=== PATIENT | male | born 1960 | race Caucasian/White ===

== ENCOUNTER → 2016-10-29 | Outpatient (CLI) | payer BC ==
[~2016-10-29] MED LIST: BYSTOLIC5 MG PO; CYMBALTA30 MG PO; HYZAAR PO; LOSARTAN-HCTZ1 EAC1 PO; NEUPRO1 EAC1 TD; PRAMIPEXOLE DI0.5 MG PO; SINEMET CR 50/21 TAB PO; ZYLOPRIM100 MG PO
--- NOTE | ~2016-10-29 | MR113 ---
[facility] A Service of [facility] RADIOLOGY TEXT RESULTS PATIENT: STANISLAW PRESTON [facility] 56 UN[facility] #: [id number] AGE: [address]: LAURA HARTLEY MD SEX: M ORDER DR: [id number] [facility] [address] [place], [place] [address] [id number] O MR#: [id number] Acc #: [id number] NAME: STANISLAW PRESTON. : 1960 SEX: M STUDY DATE/TIME: 10/29/2016 7:16 UNIT: [facility] ROOM: STUDY DESCRIPTION: MR Lumbar Wo Contrast Attending Physician: Laura Hartley M.D. Referring Physician: Laura Hartley M.D. Ordering Physician: Laura Hartley M.D. Primary Care Physician: Joni Galvan M.D. [facility]ENTER REPORT This report is preliminary unless electronic signature is present. EXAM Lumbar spine MRI without, 10/29/2016 HISTORY Severe low back pain 2 weeks. Bilateral leg pain down to feet, left greater than right. Patient indicated abnormal EMG, chronic pain for many years off and on but worsening in the past 2 weeks. No cancer history. No trauma history provided. COMMENT MRI of the lumbar spine performed without contrast using routine 1.5T imaging technique. There is a comparison study from 12/06/2014. Spine is numbered assuming there is a hypoplastic S1-2 intervertebral disc and using this numbering redemonstrated is grade 1 anterolisthesis L5 on S1 by about 4-5 mm. This is not changed from previous. There are again bilateral chronic-appearing L5 pars defects with hypertrophic changes around. them. Lumbar lordosis is exaggerated. 5-1 intervertebral disc is mildly desiccated with posterior intervertebral disc height loss. Also mild disc desiccation and loss of intervertebral disc height at 3-4, 4-5 and to a lesser extent 1-2, T12-L1, T11-12. Conus medullaris terminates at L1 level and is unremarkable. Bone marrow signal intensity unremarkable. On sagittal imaging at T12-L1, T11-12, there is concentric disc bulge but no apparent canal or foraminal impingement. At L1-2, mild right and moderate left-side facet degenerative change with ligamentum flavum thickening. Minor concentric disc bulge. No canal stenosis or significant foraminal impingement. At L2-3, qfmw-np-xfkzedwf bilateral facet degenerative change with mild ligamentum flavum thickening with no canal or foraminal impingement. [facility]. [facility] A Service of [facility] RADIOLOGY TEXT RESULTS PATIENT: STANISLAW PRESTON LOCATION: [facility] : 56 UNIT #: [id number] AGE: [address]: LAURA HARTLEY MD SEX: M ORDER DR: At 3-4, mild facet degenerative change bilaterally. Small extracanalicular synovial cyst on the left. Mild concentric disc bulge more prominent posteriorly and towards the right side posterolaterally. Mild effacement of the anterior thecal sac, minor mass effect on the right lateral recess. No significant canal stenosis. Only mild inferior foraminal narrowing. At L4-5, there is moderate facet arthritis bilaterally with sukc-xm-wqpndcti ligamentum flavum thickening. There is a mild broad-based posterior disc bulge which extends into the inferior foramina. There is no canal stenosis. There is mild mass effect on the left lateral recess. Mild right smwb-ub-[id number] left-side foraminal narrowing. At L5-S1, in addition to the pars defects there is facet arthritis bilaterally, fairly severe on the right and moderate on the left and there is a broad-based disc protrusion/extrusion remaining contiguous with the disc extending somewhat cephalad from the disc. There is mass effect on the right lateral recess expected location of the right L5 root, otherwise mild mass effect on the thecal sac. There is severe foraminal impingement bilaterally due to the anterolisthesis of 5 on 1, loss of disc height and posterior element hypertrophic changes as well as the disc material which extends into the inferior foramina. On comparison to prior these changes were present previously. The mass effect on the right lateral recess is probably worse. IMPRESSION Lumbar degenerative changes are detailed above. Most significant finding radiographically is likely at the L5-S1 level where redemonstrated is grade 1 anterolisthesis of L4 on L5 secondary to bilateral L5 pars defects. There is also facet arthritis. There is associated severe bilateral foraminal impingement and there is also focal mass effect on the right lateral recess. On comparison to the study from 12/06/2014. There is worsening mass effect on the right lateral recess at this level. Please refer to the edjwp-sy-kvomy discussion. Please be aware that the spine has been numbered assuming that there is a hypoplastic S1-2 intervertebral disc. The same numbering is used for this study as the prior study for comparison. Dictated by... Rosy Madrid M.D. THIS IS AN ELECTRONICALLY VERIFIED REPORT Rosy Madrid M.D. at 10/30/2016 1:47 PM YESICA/darien TD: 10/29/2016 22:22 JOB #: [id number] [facility]. [facility] A Service of [facility] & [facility] RADIOLOGY TEXT RESULTS PATIENT: STANISLAW PRESTON [id number] 56 UNIT #: [id number] AGE: [address]: LAURA HARTLEY MD SEX: M ORDER DR: MRI CENTER REPORT COPY
== END | disposition home or self-care (01) ==
LOC: CMRI 06:51
DX: G54.4 Lumbosacral root disorders, not elsewhere classified (principal); M43.16 Spondylolisthesis, lumbar region; M51.86 Other intervertebral disc disorders, lumbar region; M47.816 Spondylosis without myelopathy or radiculopathy, lumbar region
CPT/HCPCS: 72148

== ENCOUNTER → 2016-11-15 | Outpatient (CLI) | payer BC | END | disposition home or self-care (01) | LOC: CECH 13:29 | DX: R60.9 Edema, unspecified (principal) | CPT/HCPCS: 93306 ==

== ENCOUNTER → 2017-04-29 | Outpatient (CLI) | payer BC ==
--- NOTE | ~2017-04-29 | MR103 ---
[facility] A Service of [facility] RADIOLOGY TEXT RESULTS PATIENT: STANISLAW MCBRIDE LOCATION: [facility] : 56 UNIT #: [id number] AGE: [address]: KATINA GARDUNO MD SEX: M ORDER DR: [id number] [facility] [address] [place], [place] [address] [id number] O MR#: [id number] Acc #: [id number] NAME: STANISLAW MCBRIDE : 1960 SEX: M STUDY DATE/TIME: 04/29/2017 17:14 UNIT: [facility] ROOM: STUDY DESCRIPTION: MR Knee Wo Contrast Lt Attending Physician: Katina Garduno M.D. Referring Physician: Katina Garduno M.D. Ordering Physician: Staff Doctor Not On Primary Care Physician: Joni Galvan M.D. MRI CENTER REPORT This report is preliminary unless electronic signature is present. EXAM MRI of the left knee. HISTORY 56-year-old male severe osteoarthritis. Possible meniscal tear. FINDINGS Multiplanar, multiecho imaging performed of the left knee utilizing a high-field magnet dedicated protocol. Increased T2 marrow signal about the knee particularly within the distal femur most likely related to red marrow hyperplasia and body habitus. This can also be seen with chronic disease, chronic smoking and anemias. Correlate clinically. Moderate amount of anterior knee soft tissue swelling and edema. Minimal knee effusion. In the medial compartment, there is extensive tear of the medial meniscus extending from midbody segment into the posterior horn primarily representing a horizontal cleavage tear or longitudinal oblique tear. The tear is estimated over 2 cm in length. Mild medial extrusion of the meniscus. 6 x 8 mm focus of grade 4 chondromalacia central weightbearing aspect medial femoral condyle. No subchondral edema. In the lateral compartment, meniscus and articular cartilage appears intact. In the patellofemoral compartment, there is mild chondromalacia medial and lateral patellar facets. Kkad-ir-zcpmvfcz grade chondromalacia deep trochlear groove and lateral femoral trochlea. Anterior and posterior cruciate ligaments appear intact. The lateral collateral ligament complex appears intact. The medial collateral ligament demonstrates thickening and increased signal within the proximal MCL could represent a chronic MCL sprain or sequela of previous injury. No high-grade injury identified. Extensor mechanism demonstrates patella jurgen. Mild tendinopathy proximal patellar tendon just off the lower pole of the patella. Quadriceps tendon unremarkable. There is lack of a STS. [facility] A Service of [facility] & [facility] RADIOLOGY TEXT RESULTS PATIENT: STANISLAW MCBRIDE LOCATION: [facility] : 56 UNIT #: [id number] AGE: [address]: KATINA GARDUNO MD SEX: M ORDER DR: well-defined medial patellar retinaculum and medial patellofemoral ligament may represent the sequela of a previous injury. IMPRESSION 1. Extensive tear of the medial meniscus primarily representing a horizontal cleavage tear, longitudinal oblique tear. 2. Medial compartment arthrosis with 6 x 8 mm focus of grade 4 chondromalacia medial femoral condyle. 3. Mild patellar tendinopathy. 4. Suspected chronic MCL sprain involving the proximal MCL. 5. Poor definition of the medial patellar retinaculum and medial patellofemoral ligament may represent the sequela of prior trauma. Correlate clinically. 6. Moderate amount of pretibial and prepatellar soft tissue swelling. There is a focal fluid collection just anterior to the tibial tubercle measuring up to 11 mm and may represent focal bursitis or adventitial bursa. STAT * RESULT Dictated by... Mary Mcbride M.D. THIS IS AN ELECTRONICALLY VERIFIED REPORT Mary Mcbride M.D. at 05/01/2017 2:28 PM DALIA/ruth TD: 04/30/2017 14:24 JOB #: [id number] MRI CENTER REPORT Page 1 of 1 COPY
== END | disposition home or self-care (01) ==
LOC: CMRI 13:00
DX: M17.12 Unilateral primary osteoarthritis, left knee (principal); M23.204 Derangement of unspecified medial meniscus due to old tear or injury, left knee; M76.52 Patellar tendinitis, left knee
CPT/HCPCS: 73721